=== PATIENT | female | born 1945 | race Caucasian/White ===

== ENCOUNTER 2017-03-06 11:47 | Day surgery (SDC) | payer OTHER ==
--- NOTE | ~2017-03-06 | EGD ---
EGD REPORT [facility] [address] [address] NAME: SUMAYA TAVERAS : [birth year] STATUS : REG [facility]#: [id number] AGE: 71 ADM/REG DATE : 03/06/17 MR#: [id number] REPORT SERV DATE: 03/06/17 DICTATED BY: UNA NUNEZ DATE: 03/06/17 REPORT STATUS : Draft TRANSCRIBED BY: [facility] DATE: 03/06/17 Endoscopy Center Patient Name: Sumaya Taveras Date of : 1945 Attending MD: UNA NUNEZ MD Procedure Date No Time: 03/06/2017 Procedure: Colonoscopy Indications: Iron deficiency anemia, Last colonoscopy: September 2014 Referring MD: ROMINA CHAVIRA Medicines: See the Anesthesia note for documentation of the administered medications Complications: No immediate complications. Procedure: Pre-Anesthesia Assessment: - ASA Grade Assessment: III - A patient with severe systemic disease. After I obtained informed consent, the scope was passed under direct vision. Throughout the procedure, the patient's blood pressure, pulse, and oxygen saturations were monitored continuously. The [facility] [id number] was introduced through the anus and advanced to the cecum, identified by appendiceal orifice and ileocecal valve. The colonoscopy was performed without difficulty. The patient tolerated the procedure well. The quality of the bowel preparation was fair. Findings: The perianal and digital rectal examinations were normal. Diverticula were found in the sigmoid colon, in the descending colon and in the ascending colon. Internal hemorrhoids were found during retroflexion and were medium-sized. Three sessile polyps were found in the ascending colon. The polyps were small in size. These polyps were removed with a cold biopsy forceps. Resection and retrieval were complete. A flat polyp was found in the descending colon. The polyp was 30 mm in size. The polyp was removed with a piecemeal technique using a hot snare. Resection and retrieval were complete. Area was successfully injected with Spot (carbon black) for tattooing. One hemostatic clip was successfully placed. This was done to prevent bleeding. Impression: - Diverticulosis in the sigmoid colon, in the descending colon and in the ascending colon. - Internal hemorrhoids. - Three small polyps in the ascending colon. Resected and retrieved. EGD REPORT [facility] [id number] [place]. [address] NAME: SUMAYA TAVERAS : [birth year] STATUS : REG [facility]#: [id number] AGE: 71 ADM/REG DATE : 03/06/17 MR#: [id number] REPORT SERV DATE: 03/06/17 DICTATED BY: UNA NUNEZ DATE: 03/06/17 REPORT STATUS : Draft TRANSCRIBED BY: [employer] DATE: 03/06/17 - One 30 mm polyp in the descending colon. Resected and retrieved. Injected. Clip was placed. Recommendation: - Patient has a contact number available for emergencies. The signs and symptoms of potential delayed complications were discussed with the patient. Return to normal activities tomorrow. Written discharge instructions were provided to the patient. - Regular diet. - Continue present medications. - Repeat colonoscopy in 6 months for surveillance after piecemeal polypectomy. - FOR YOUR BIOPSY RESULTS: Please go to [email or web address] and register to receive your results via the portal. Your biopsy results will be posted there in about 7 to 10 days. IF you do not see result in 10 days, call office. - Follow up with Dr Nunez or his nurse practitioner in 4 weeks Procedure Code(s): --- Professional --- 30932, Colonoscopy, flexible, proximal to splenic flexure; with removal of tumor(s), polyp(s), or other lesion(s) by snare technique 44864, 59, Colonoscopy, flexible, proximal to splenic flexure; with biopsy, single or multiple 12382, Colonoscopy, flexible, proximal to splenic flexure; with directed submucosal injection(s), any substance Diagnosis Code(s): --- Professional --- K64.8, Other hemorrhoids K57.30, Diverticulosis of large intestine without perforation or abscess without bleeding D12.4, Benign neoplasm of descending colon D12.2, Benign neoplasm of ascending colon D50.9, Iron deficiency anemia, unspecified CPT copyright 2013 [employer]. All rights reserved. The codes documented in this report are preliminary and upon conventional underwriter review may be revised to meet current compliance requirements. Una Nunez MD UNA NUNEZ MD EGD REPORT [facility] [address] [address] NAME: SUMAYA TAVERAS : [birth year] STATUS : REG [facility] PAT#: [id number] AGE: 71 ADM/REG DATE : 03/06/17 MR#: [id number] REPORT SERV DATE: 03/06/17 DICTATED BY: UNA NUNEZ DATE: 03/06/17 REPORT STATUS : Draft TRANSCRIBED BY: [employer] DATE: 03/06/17 03/06/2017 2:31 PM This report has been signed electronically. Number of Addenda: 0 Note Initiated On: 03/06/2017 1:42 PM Scope Withdrawal Time 0 hours 27 minutes [address] [place], [place] [address] [address]
--- NOTE | ~2017-03-06 | EGD ---
EGD REPORT [facility] [address] [address] NAME: SUMAYA TAVERAS : [birth year] STATUS : REG [facility]#: [id number] AGE: 71 ADM/REG DATE : 03/06/17 MR#: [id number] REPORT SERV DATE: 03/06/17 DICTATED BY: UNA NUNEZ DATE: 03/06/17 REPORT STATUS : Draft TRANSCRIBED BY: [facility] DATE: 03/06/17 Endoscopy Center Patient Name: Sumaya Taveras Date of : 1945 Attending MD: UNA NUNEZ MD Procedure Date No Time: 03/06/2017 Procedure: Upper GI endoscopy Indications: Abdominal pain in the right upper quadrant, Iron deficiency anemia, Gastro-esophageal reflux disease Referring MD: ROMINA CHVAIRA Medicines: See the Anesthesia note for documentation of the administered medications Complications: No immediate complications. Procedure: Pre-Anesthesia Assessment: - ASA Grade Assessment: III - A patient with severe systemic disease. After obtaining informed consent, the endoscope was passed under direct vision. Throughout the procedure, the patient's blood pressure, pulse, and oxygen saturations were monitored continuously. The [facility] H190 [id number] was introduced through the mouth, and advanced to the second part of duodenum. The upper GI endoscopy was accomplished without difficulty. The patient tolerated the procedure well. Findings: The 2nd part of the duodenum was normal. Biopsies were taken with a cold forceps for histology. A single small sessile polyp was found in the gastric fundus (on retroflexion). Biopsies were taken with a cold forceps for histology. A small hiatus hernia was present. Impression: - Normal 2nd part of the duodenum. Biopsied. - A single gastric polyp. Biopsied. - Hiatus hernia. Recommendation: - Patient has a contact number available for emergencies. The signs and symptoms of potential delayed complications were discussed with the patient. Return to normal activities tomorrow. Written discharge instructions were provided to the patient. - Regular diet. - Continue present medications. - FOR YOUR BIOPSY RESULTS: Please go to [email or web address] and register to receive your EGD REPORT [address] [address] NAME: SUMAYA TAVERAS : [birth year] STATUS : REG [facility] PAT#: [id number] AGE: 71 ADM/REG DATE : 03/06/17 MR#: [id number] REPORT SERV DATE: 03/06/17 DICTATED BY: UNA NUNEZ DATE: 03/06/17 REPORT STATUS : Draft TRANSCRIBED BY: [employer] DATE: 03/06/17 results via the portal. Your biopsy results will be posted there in about 7 to 10 days. IF you do not see result in 10 days, call office. Procedure Code(s): --- Professional --- 69919, Esophagogastroduodenoscopy, flexible, transoral; with biopsy, single or multiple Diagnosis Code(s): --- Professional --- K31.7, Polyp of stomach and duodenum K44.9, Diaphragmatic hernia without obstruction or gangrene R10.11, Right upper quadrant pain D50.9, Iron deficiency anemia, unspecified K21.9, Gastro-esophageal reflux disease without esophagitis CPT copyright 2013 [employer]. All rights reserved. The codes documented in this report are preliminary and upon durability engineer review may be revised to meet current compliance requirements. Una Nunez MD UNA NUNEZ MD 03/06/2017 1:59 PM This report has been signed electronically. Number of Addenda: 0 Note Initiated On: 03/06/2017 1:43 PM Scope Withdrawal Time 0 hours 0 minutes 0 seconds [address] [address]
[~2017-03-06 11:47] MED LIST: ADVAIR250 INH; ADVIL PO; ALEVE220 MG PO; ASAB PO; BENTYL10 PO; CALTRA600D PO; CARDU2 PO; CAT1 PO; CLARINEX5 MG PO; COSAMIN DS1 TAB PO; COZAAR100 MG PO; DITRO5 PO; ENABLEX15 PO; ESTRACE CREAM TD; FERROUS SULF325 M1 PO; FLEX PO; FOLIC ACID PO; FOLIC ACID400 MC1 PO; FOLIC ACID800 MCG PO; FORTAMET500 MG PO; GLUCCHONDR PO; GLUCPH PO; HARD NAILS OR; HARD NAILS PO; HYOMAX-DT PO; HYOMAX-SL0.125 MG PO; LIPITOR40 PO; LORTAB 5 PO; MEDROLPAK4 PO; METHIMAZOLE10 MG OR; MTX2.5 PO; MULTIPLE VIT PO; MULTIVIT/MIN PO; MYRBETRIQ25 MG PO; NASACORTAQ NAS; NASONEX NAS; NORV10 PO; PLAQ200B PO; PREDNISONE2.5 MG PO; PREV30 PO; PRIN10 PO; PROVHFA INH; QUESLITE PO; T PO; TRICOR145 PO; TRILIPIX135 MG PO; TYLENOL ARTH650 MG PO; VICODINTAB PO; VITAMIN D1000 UNI1 PO; WELCHOL625 MG OR; XYZAL5 MG PO; Z100 PO; ZESTRIL10 MG PO; ZIAC10 PO; ZIAC5 PO; ZITH250 PO; ZOCOR40 PO
== END 2017-03-06 23:59 | disposition home or self-care (01) ==
LOC: DMU 11:47
PROVIDERS: Internal Medicine Gastroenterology
PROC: 0DB98ZX Excision of Duodenum, Via Natural or Artificial Opening Endoscopic, Diagnostic (ICD-10-PCS; 2017-03-06)
PROC: 0DB68ZX Excision of Stomach, Via Natural or Artificial Opening Endoscopic, Diagnostic (ICD-10-PCS; 2017-03-06)
PROC: 0DBK8ZZ Excision of Ascending Colon, Via Natural or Artificial Opening Endoscopic (ICD-10-PCS; principal; 2017-03-06 14:00)
PROC: 0DBM8ZZ Excision of Descending Colon, Via Natural or Artificial Opening Endoscopic (ICD-10-PCS; 2017-03-06 14:00)
DX: D12.2 Benign neoplasm of ascending colon (principal); D12.4 Benign neoplasm of descending colon; K31.7 Polyp of stomach and duodenum; K64.8 Other hemorrhoids; K57.30 Diverticulosis of large intestine without perforation or abscess without bleeding; D50.9 Iron deficiency anemia, unspecified; R10.11 Right upper quadrant pain; E78.00 Pure hypercholesterolemia, unspecified; I10 Essential (primary) hypertension; R01.1 Cardiac murmur, unspecified; G47.33 Obstructive sleep apnea (adult) (pediatric); M19.90 Unspecified osteoarthritis, unspecified site; K58.9 Irritable bowel syndrome, unspecified; D64.9 Anemia, unspecified; K21.9 Gastro-esophageal reflux disease without esophagitis; E11.9 Type 2 diabetes mellitus without complications; Z98.41 Cataract extraction status, right eye; Z96.1 Presence of intraocular lens; Z86.010 Personal history of colon polyps; Z90.710 Acquired absence of both cervix and uterus; Z85.42 Personal history of malignant neoplasm of other parts of uterus; Z90.49 Acquired absence of other specified parts of digestive tract; Z98.890 Other specified postprocedural states; Z79.899 Other long term (current) drug therapy; Z79.82 Long term (current) use of aspirin
CPT/HCPCS: 82962; 88305